=== PATIENT | male | born 1950 | race Caucasian/White ===

== ENCOUNTER 2022-01-05 09:40 | Emergency (ER) | payer OTHER ==
[~2022-01-05] VITALS: Ht 182.9 cm; Wt 86.2 kg
[2022-01-05] MEDS ORDERED: MIRAPEX0.125 MG PO (10:08)
[2022-01-05] MEDS ORDERED: CRESTOR5 MG (10:08)
[2022-01-05] MEDS ORDERED: TOPROL XL25 M1 (10:08)
[2022-01-05] MEDS ORDERED: ADULT LOW DOSE81 M1 (10:08)
== END 2022-01-05 17:37 | disposition home or self-care (01) ==
LOC: ER 09:40
DX: M54.9 Dorsalgia, unspecified (principal); N39.0 Urinary tract infection, site not specified